=== PATIENT | female | born 1980 | race Caucasian/White ===

== ENCOUNTER 2021-08-19 23:17 | Emergency (ER) | payer OTHER ==
[~2021-08-19] VITALS: Ht 167.6 cm; Wt 97.1 kg
[2021-08-19] MEDS ORDERED: HYDR-3980 PO (23:56)
[2021-08-19] MEDS ORDERED: ZOLP5TAB2 PO (23:56)
[2021-08-19] MEDS ORDERED: keflex PO (23:56)
[2021-08-20] MEDS ORDERED: OXYCODONE/APAP 5-325 MG TABLET PO ONE (01:30)
[2021-08-20 01:57] LABS: HEMATOCRIT 30.9 % (31.2-41.9); MEAN CORPUSCULAR VOLUME 68.5 fL (75.5-95.3); PLATELET COUNT (AUTO) 374 K/uL (179-408)
[2021-08-20] MEDS ORDERED: OXYCODONE/APAP 5-325 MG TABLET ONE (01:57)
[2021-08-20 02:10] LABS: BILIRUBIN,TOTAL 0.3 mg/dL (0.2-1.0); CREATININE 0.7 mg/dL (0.6-1.3); POTASSIUM 3.2 mmol/L (3.5-5.1); TOTAL PROTEIN, SERUM 7.7 g/dL (6.4-8.2)
[2021-08-20] MEDS ORDERED: SIMETHICONE 80 MG TAB.CHEW PO ONE (02:15)
[2021-08-20] MEDS ORDERED: SIMETHICONE 80 MG TAB.CHEW ONE ×2 (02:25→02:26)
[2021-08-20] MEDS ORDERED: POTASSIUM BICARBONATE/CIT AC 25 MEQ TABLET.EFF PO ONE (02:45)
[2021-08-20] MEDS ORDERED: FERR325T23 PO (03:04)
[2021-08-20] MEDS ORDERED: FERR325T28 PO (03:04)
[2021-08-20 03:09] LABS: IRON, SERUM 22 ug/dL (50-175)
[2021-08-20] MEDS ORDERED: NAPR-1164 PO (03:19)
[2021-08-20 03:23] LABS: FERRITIN 108 ng/mL (8-252)
[2021-08-20] MEDS ORDERED: POTASSIUM BICARBONATE/CIT AC 25 MEQ TABLET.EFF ONE (03:23)
[2021-08-20 03:35] VITALS: BP 127/70
== END 2021-08-20 03:37 | disposition home or self-care (01) ==
LOC: ER 23:19
DX: I80.8 Phlebitis and thrombophlebitis of other sites (principal); E87.6 Hypokalemia; D50.9 Iron deficiency anemia, unspecified; Z90.49 Acquired absence of other specified parts of digestive tract
CPT/HCPCS: 36415; 83550; 85025; A4663